=== PATIENT | female | born 1985 | race Caucasian/White ===

== ENCOUNTER 2016-10-15 19:57 | Inpatient (IN) | payer BC ==
[~2016-10-15] VITALS: Ht 170.2 cm; Wt 100.2 kg
[2016-10-15] MEDS ORDERED: GLUCOPHAGE500 MG PO (20:44)
[2016-10-15] MEDS ORDERED: PRENATAL PLUS I1 TAB PO (20:48)
[2016-10-19] MEDS ORDERED: LAN-O-SOOTHE7 GM TOP (08:50)
[2016-10-19] MEDS ORDERED: MOTRIN800 MG PO (08:50)
[2016-10-19] MEDS ORDERED: ULTRAM50 MG PO (08:51)
== END 2016-10-19 11:28 | disposition short-term general hospital (02) | DRG 766 ==
LOC: LDRIP 19:57
PROVIDERS: ADMIT Family Medicine
PROC: 3E0P7GC Introduction of Other Therapeutic Substance into Female Reproductive, Via Natural or Artificial Opening (ICD-10-PCS; principal; 2016-10-17)
PROC: 10D00Z1 Extraction of Products of Conception, Low, Open Approach (ICD-10-PCS; principal; 2016-10-17)
DX: O33.9 Maternal care for disproportion, unspecified (principal); O24.425 Gestational diabetes mellitus in childbirth, controlled by oral hypoglycemic drugs; Z3A.39 39 weeks gestation of pregnancy; Z37.0 Single live birth; F32.9 Major depressive disorder, single episode, unspecified
CPT/HCPCS: A9150; J0131; J0690; J1885; J2270; J2300; J2310; J2370; J2405; J2590; J2765; J2795; J3010